=== PATIENT | male | born 1960 | race Caucasian/White ===

== ENCOUNTER 2016-08-06 07:36 | Outpatient (CLI) | payer OTHER ==
--- NOTE | 2016-08-06 09:15 | DIAGNOSTIC IMAGING REPORT ---
PROCEDURE: US BILATERAL CAROTID DOPPLER INDICATION: CAROTID STENOSIS TECHNIQUE: Color Doppler duplex imaging of the carotid and vertebral vessels. COMPARISON: None. FINDINGS: Mild plaque formation of the bifurcations bilaterally. Vessels are patent. Right common carotid artery peak systolic velocity 64 cm/second. Right internal carotid artery peak systolic velocity 95 cm/second. Right external carotid artery peak systolic velocity 119 cm/second. Right lulnhxgt-ys-fiqhwe carotid artery ratio 1.5 . Right vertebral artery peak systolic velocity 39 cm/second antegrade. Left common carotid artery peak systolic velocity 82 cm/second. Left internal carotid artery peak systolic velocity 75 cm/second. Left external carotid artery peak systolic velocity 163 cm/second. Left cfatygvm-ed-hhqvla carotid artery ratio 0.9 Left vertebral artery peak systolic velocity 39 cm/second antegrade. IMPRESSION: 1. Mild plaque formation of the bifurcations bilaterally 2. Bilateral ICA 5-15% stenosis 3. Left ECA 50-99% stenosis Velocity criteria are extrapolated from diameter data as defined by the Society of Rad[employer]ologists in Ultrasound Consensus Conference, Radiology 2003; 229; 340-346.
--- NOTE | 2016-08-06 09:15 | DIAGNOSTIC IMAGING REPORT ---
PROCEDURE: US BILATERAL CAROTID DOPPLER INDICATION: CAROTID STENOSIS TECHNIQUE: Color Doppler duplex imaging of the carotid and vertebral vessels. COMPARISON: None. FINDINGS: Mild plaque formation of the bifurcations bilaterally. Vessels are patent. Right common carotid artery peak systolic velocity 64 cm/second. Right internal carotid artery peak systolic velocity 95 cm/second. Right external carotid artery peak systolic velocity 119 cm/second. Right hxzcejuw-xe-wosdep carotid artery ratio 1.5 . Right vertebral artery peak systolic velocity 39 cm/second antegrade. Left common carotid artery peak systolic velocity 82 cm/second. Left internal carotid artery peak systolic velocity 75 cm/second. Left external carotid artery peak systolic velocity 163 cm/second. Left htgtjfwd-ep-nnrsxk carotid artery ratio 0.9 Left vertebral artery peak systolic velocity 39 cm/second antegrade. IMPRESSION: 1. Mild plaque formation of the bifurcations bilaterally 2. Bilateral ICA 5-15% stenosis 3. Left ECA 50-99% stenosis Velocity criteria are extrapolated from diameter data as defined by the [employer] of [employer]iologists in Ultrasound Consensus Conference, Radiology 2003; 229; 340-346.
== END 2016-08-06 23:00 ==
LOC: US SRH 07:36
DX: I65.22 Occlusion and stenosis of left carotid artery (principal)